=== PATIENT | male | born 1995 | race Caucasian/White ===

== ENCOUNTER 2017-11-29 13:10 | Emergency (ER) | payer SELFPAY ==
--- NOTE | 2017-11-29 13:25 | Emergency Department Record ---
History of Present Illness - General Chief complaint: Extremity Problem Stated complaint: LT WRIST PAIN/LT HAND WEAKNESS Time Seen by Provider: 11/29/17 13:18 Source: Patient Mode of Arrival: Ambulatory Limitations: No limitations - History of Present Illness Initial comments: 22 yo male presents with 7 months of left wrist pain. He is right handed. 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 The pain is mostly on the ulnar side. No specific injury. Over seven months the wrist has gradually developed pain. No swelling. No warmth or redness. He has chronic knee pain as well. He has been using his dad's wrist splint. No PCP. No fevers or chills. MD Complaint: Extremity pain, Joint pain -: Month(s) (7) Location: Left History of Same: Yes -: Yes Arthralgia Radiation: Distal Quality: Aching Consistency: Constant Improves with: Immobilization Worsens with: Exertion, Palpation Associated Symptoms: Arthralgias - Related Data Home Medications Medication Instructions Recorded Confirmed Last Taken No Home Med [NO HOME MEDS] 11/29/17 11/29/17 Unknown Allergies Allergy/AdvReac Type Severity Reaction Status Date / Time No Known Drug Allergies Allergy Verified 11/29/17 13:20 Review of Systems Constitutional: Denies: Chills, Fever, Malaise, Weakness Eyes: Denies: Eye discharge ENT: Denies: Congestion, Throat pain Respiratory: Denies: Cough Cardiovascular: Denies: Chest pain, Syncope Endocrine: Denies: Fatigue Gastrointestinal: Denies: Abdominal pain, Diarrhea, Nausea, Vomiting Genitourinary: Denies: Dysuria, Frequency Musculoskeletal: Reports: As per HPI, Arthralgia. Denies: Back pain, Joint swelling, Myalgia, Neck pain Skin: Denies: Bruising, Change in color, Rash Neurological: Denies: Numbness, Paresthesias, Weakness Psychiatric: Denies: Anxiety Hematological/Lymphatic: Denies: Easy bleeding, Easy bruising Physical Exam - General General Appearance: Alert, Oriented x3, Cooperative, No acute distress Limitations: No limitations - Head Head exam: Atraumatic, Normal inspection - Eye Eye exam: Normal appearance - ENT ENT exam: Normal exam Ear exam: Normal external inspection Nasal Exam: Normal inspection Mouth exam: Normal external inspection - Neck Neck exam: Normal inspection - Cardiovascular Cardiovascular Exam: Regular rate, Normal rhythm, Normal heart sounds Peripheral Pulses: 2+: Radial (L) - Rectal Rectal exam: Deferred - exam: Deferred - Extremities Extremities exam: Normal inspection, Full ROM, Normal capillary refill, Tenderness, Other (strong L radial pulse). negative: Calf tenderness, Joint swelling, Pedal edema Image of Hand: 1 - Area of tenderness and pain. Normal inspection. No warmth. No redness. No swelling. Full ROM. - Neurological Neurological exam: Alert, Normal gait, Oriented X3. negative: Altered, Motor sensory deficit - Psychiatric Psychiatric exam: Normal affect, Normal mood - Skin Skin exam: Dry, Intact, Normal color, Warm Course - Reevaluation(s) Reevaluation #1: 11/29/17 13:56 The XR was reviewed. No fracture or dislocation. Questionable scapho lunate widening. Recommend MRI arthrography. The patient is to use the splint, follow up with PCP for outpatient MRI if the pain continues. Disposition Disposition: Discharge Clinical Impression: Wrist pain, left Disposition: Home, Self-Care Condition: (1) Good Instructions: Wrist Sprain (ED) Additional Instructions: Ice everyday after use/work Use the splint for comfort and support as much as possible You will need an MRI of the wrist if the pain continues Call the number provided for a new family doctor Referrals: BREN BLISS [MEDICAL DOCTOR] - Forms: Patient Portal Access Time of Disposition: 13:59 Quality - Quality Measures Quality Measures: N/A - Blood Pressure Screening Does Patient Have Any of the Following: No Blood Pressure Classification: Pre-Hypertensive BP Reading Systolic Measurement: 131 Diastolic Measurement: 77 Screening for High Blood Pressure: < Pre-Hypertensive BP, F/U Documented > [ G8950] Pre-Hypertensive Follow-up Interventions: Referral to alternative/primary care provider.
--- NOTE | 2017-11-30 22:17 | RADIOLOGY REPORT ---
EXAM: WRIST, LEFT 3 VIEWS HISTORY: PAIN SINCE INJURY SEVEN MONTHS AGO. PROGRESSIVE WORSENING OF PAIN. TECHNIQUE: AP, oblique, and lateral views of the left wrist. COMPARISON: None. FINDINGS: There is normal bone mineralization. No fracture, dislocation, or destructive bone lesion is seen. The proximal aspect of the scapholunate joint space is borderline to mildly widened. The articular relations are otherwise maintained. IMPRESSION: 1. NO ACUTE FRACTURE NOR DISLOCATION. 2. THE PROXIMAL ASPECT OF THE SCAPHOLUNATE JOINT SPACE IS BORDERLINE TO MILDLY WIDENED. WHILE THIS MAY BE NORMAL FOR THIS PATIENT, SCAPHOLUNATE LIGAMENT INJURY WOULD BE DIFFICULT TO EXCLUDE. JOB NUMBER: [id number] [facility]
== END 2017-11-29 14:13 | disposition home or self-care (01) ==
LOC: ER 13:10
DX: M25.532 Pain in left wrist (principal)
CPT/HCPCS: 99283

== ENCOUNTER 2018-06-20 13:27 | Emergency (ER) | payer BC ==
[2018-06-20] MEDS ORDERED: KETOROLAC 30 MG/ML VIAL IVP ONE (13:46)
--- NOTE | 2018-06-20 13:49 | Emergency Department Record ---
History of Present Illness - General Chief Complaint: Chest Pain Stated Complaint: CHEST PAIN Time Seen by Provider: 06/20/18 13:34 Source: Patient Mode of Arrival: Ambulatory Limitations: No limitations - History of Present Illness Initial Comments: The patient is here due to L sided CP for 2 days. The patient describes the pain as a sharp stabbing L chest pain that is non radiating. He denies any SOB, EMMY, sweating or nausea with the pain but it is worse with any bending, twisting , palpation or deep breathing. The patient denies any recent illnesses or injuries and he has no cardiac risk factors and no risk factors for PE. MD Complaint: Chest pain Onset/Timin -: Days(s) Pain Location: Left chest Severity: Moderate Severity scale (1-10): 7 Quality: Aching Consistency: Constant, Intermittent Worsens With: Movement, Palpation - Related Data Previous Rx's Medication Instructions Recorded Naproxen [Naprosyn] 500 mg PO BID #14 tablet. 06/20/18 Allergies Allergy/AdvReac Type Severity Reaction Status Date / Time No Known Drug Allergies Allergy Verified 06/20/18 13:33 Travel Screening - Travel/Exposure Within Last 30 Days Have you traveled within the last 30 days?: No - Travel/Exposure Within Last Year Have you traveled outside the [place] in the last year?: No - Additonal Travel Details Have you been exposed to anyone with a communicable illness?: No - Travel Symptoms Symptom Screening: None Review of Systems Constitutional: Denies: Chills, Fever Eyes: Denies: Eye discharge ENT: Denies: Congestion Respiratory: Denies: Cough, Dyspnea Cardiovascular: Reports: Chest pain. Denies: Arrhythmia Endocrine: Denies: Fatigue Gastrointestinal: Denies: Nausea Genitourinary: Denies: Dysuria Musculoskeletal: Denies: Arthralgia Skin: Denies: Bruising Past Medical History - SOCIAL HISTORY Smoking Status: Never smoker Alcohol Use: Occasional Drug Use: None - RESPIRATORY Hx Asthma: Yes (as child) - CARDIOVASCULAR Hx Cardio Disorders: No - NEURO Hx Neuro Disorders: No - GI Hx GI Disorders: No - Hx Genitourinary Disorders: No - ENDOCRINE Hx Endocrine Disorders: No - MUSCULOSKELETAL Hx Musculoskeletal Disorders: No - PSYCH Hx Psych Problems: No - HEMATOLOGY/ONCOLOGY Hx Hematology/Oncology Disorders: No Family Medical History Any Significant Family History?: Yes Family Hx Comment (NOT TO BE USED IN PLACE OF ITEMS BELOW): parents RA Hx Heart Disease: Father, Mother, Grandparents Hx Stroke: Grandparents Physical Exam - General General Appearance: Alert, Oriented x3, Cooperative, No acute distress - Head Head exam: Atraumatic, Normocephalic, Normal inspection - Eye Eye exam: Normal appearance, PERRL, EOMI - ENT Throat exam: Normal inspection. negative: Tonsillar erythema, Tonsillar exudate - Neck Neck exam: Normal inspection, Full ROM. negative: Lymphadenopathy, Meningismus , Tenderness - Respiratory Respiratory exam: Normal lung sounds bilaterally, Chest wall tenderness (The L anterior CP is 100% reproducible to palpation and twisting and bending.). negative: Respiratory distress - Cardiovascular Cardiovascular Exam: Regular rate, Normal rhythm, Normal heart sounds - GI/Abdominal GI/Abdominal exam: Soft, Normal bowel sounds. negative: Tenderness - Extremities Extremities exam: Normal inspection, Full ROM, Normal capillary refill. negative: Calf tenderness, Pedal edema, Tenderness Image of Full Body: 1 - Area of pain and reproducible tenderness. - Back Back exam: Reports: Normal inspection - Neurological Neurological exam: Alert. negative: Motor sensory deficit Course Vital Signs 06/20/18 13:29 Temperature 98.1 F Pulse Rate 67 Respiratory 20 Rate Blood Pressure 143/78 Pulse Ox 100 - Reevaluation(s) Reevaluation #1: The patient is doing better at this time and is resting comfortably. He has no SOB presently but the pain is still very reproducible. 06/20/18 14:45 Reevaluation #2: The patient is doing very well at this time. His pain is now 100% resolved and he is able to get up and walk with no CP, SOB, or EMMY. I did explain to him that his tests are all WNL's and he is to see his PCP later this week for recheck. 06/20/18 15:41 Medical Decision Making - Data Complexity MDM Data: Labs Ordered and/or Reviewed, X-Ray Ordered and/or Reviewed, EKG Ordered and/or Reviewed - Lab Data Result diagrams: 06/20/18 13:55 06/20/18 13:55 - EKG Data -: EKG Interpreted by Me EKG: No Acute Changes, Normal EKG - Radiology Data Radiology results: Report reviewed (CXR: Neg.) Disposition Disposition: Discharge Clinical Impression: Chest wall pain Disposition: Home, Self-Care Condition: (2) Stable Instructions: Chest Wall Pain (ED) Additional Instructions: Please rest today and see your family doctor later this week for recheck. Take the Naprosyn for pain and please return to the ER for any worsening symptoms, fever, trouble breathing or shortness of breath. Prescriptions: Naproxen [Naprosyn] 500 mg PO BID #14 tablet.dr Forms: Patient Portal Access Time of Disposition: 15:43 Quality - Quality Measures Quality Measures: N/A - Blood Pressure Screening View Details: Yes Does Patient Have Any of the Following: No Blood Pressure Classification: Hypertensive Reading Systolic Measurement: 143 Diastolic Measurement: 78 Screening for High Blood Pressure: < First Hypertensive BP, F/U Documented > [ G8950] First Hypertensive Follow-up Interventions: Referral to alternative/primary care provider.
[2018-06-20 14:02] LABS: BASO % 0.3 % (0-6); EOS % 1.3 % (0-6); GRAN % 59.8 % (47-80); HEMATOCRIT 46.6 % (42.0-52.0); HEMOGLOBIN 15.8 gm/dl (14.0-18.0); LYMPH % 28.9 % (16-45); MEAN CELL VOLUME 86.9 fl (81-97); MEAN CORPUSCULAR HEMOGLOBIN 29.5 pg (27-33); MEAN CORPUSCULAR HGB CONC 33.9 g/dl (32-36); MEAN PLATELET VOLUME 10.1 fl (7.4-10.4); MONO % 9.7 % (0-9); PLATELET COUNT 245 K/uL (130-400); RED BLOOD COUNT 5.36 M/uL (4.40-5.70); RED CELL DISTRIBUTION WIDTH 13.5 % (11.5-14.5); WHITE BLOOD COUNT W/O DIFF 6.7 K/uL (4.2-12.2)
[2018-06-20 14:11] LABS: BLOOD UREA NITROGEN 12 mg/dL (6-20); CREATININE 0.8 mg/dL (0.7-1.2); EST GLOMERULAR FILTRATION RATE > 60 mL/min
[2018-06-20 14:12] LABS: TOTAL PROTEIN 7.8 g/dL (6.6-8.7)
[2018-06-20 14:14] LABS: GLUCOSE,RANDOM 73 mg/dL (74-109)
[2018-06-20 14:16] LABS: ALB/GLOB RATIO 1.7 (1.1-1.8); ALBUMIN 4.9 g/dL (4.0-5.0); ALT/SGPT 18 U/L (<41); AST/SGOT 13 U/L (10.0-50.0)
[2018-06-20 14:17] LABS: ALKALINE PHOSPHATASE 66 U/L (40-129)
[2018-06-20] MEDS ORDERED: ACETAMINOPHEN 1,000 MG/100 ML BTL IVPB ONE (14:43)
--- NOTE | 2018-06-22 09:35 | RADIOLOGY REPORT ---
EXAM: CHEST, TWO VIEWS HISTORY: LEFT SIDED CHEST PAIN FOR TWO DAYS. TECHNIQUE: Two views of the chest were obtained. Comparison: None. FINDINGS: The cardiac silhouette is within normal size limits. No focal pulmonary consolidation. No pleural effusion or pneumothorax. IMPRESSION: NO ACUTE LUNG FINDINGS. JOB NUMBER: [id number] [facility]
== END 2018-06-20 15:52 | disposition home or self-care (01) ==
LOC: ER 13:27
DX: R07.89 Other chest pain (principal)
CPT/HCPCS: 71046; 80053; 84484; 85025; 85379; 85651; 86140; 93005; 93010; 96365; 96375; 99284; J1885